=== PATIENT | male | born 2005 | race Caucasian/White ===

== ENCOUNTER 2025-01-23 15:59 | Emergency (ER) | payer OTHER ==
[~2025-01-23] VITALS: Ht 190.5 cm; Wt 68.0 kg
[2025-01-23] MEDS ORDERED: fentaNYL CITRATE/PF 50 MCG/ML SYRINGE IV ONE (16:10)
[2025-01-23] MEDS ORDERED: Ondansetron Hydrochloride 4 MG/2 ML VIAL IV ONE (16:15)
[2025-01-23] MEDS ORDERED: ceFAZolin sodium/sodium chlor 10 ML IV ONE (16:25)
[2025-01-23] MEDS ORDERED: SODIUM CHLORIDE 0.9% 1,000 ML IV ONE (16:25)
== END 2025-01-23 17:28 | disposition short-term general hospital (02) ==
LOC: ED 15:59
DX: S02.609B Fracture of mandible, unspecified, initial encounter for open fracture (principal); Z88.0 Allergy status to penicillin; Z88.5 Allergy status to narcotic agent; W20.8XXA Other cause of strike by thrown, projected or falling object, initial encounter; Y93.89 Activity, other specified; Y92.69 Other specified industrial and construction area as the place of occurrence of the external cause; Y99.0 Civilian activity done for income or pay